=== PATIENT | female | born 1995 | race Two or more races ===

== ENCOUNTER 2020-07-15 20:01 | Emergency (ER) | payer SELFPAY ==
[~2020-07-15] VITALS: Ht 165.1 cm; Wt 72.2 kg
[2020-07-15 20:04] VITALS: BP 114/70
== END 2020-07-16 01:31 | disposition left against medical advice (07) ==
LOC: ER 20:01
DX: O20.0 Threatened abortion (principal); Z3A.11 11 weeks gestation of pregnancy
CPT/HCPCS: 76801; 99284